=== PATIENT | female | born 1955 | race Caucasian/White ===

== ENCOUNTER → 2019-07-09 17:34 | Outpatient (CLI) | payer OTHER, SELFPAY ==
--- NOTE | 2019-07-09 17:36 | DI.MRI.S_ITS ---
PROCEDURE: MR HEAD/BRAIN WO CON INDICATIONS: HEADACHE TECHNIQUE: Non-contrast axial T1 spin echo, axial T2 fast spin echo, sagittal and axial FLAIR, coronal T2 fast spin echo, axial gradient echo, axial diffusion and ADC through the brain. COMPARISON: None. FINDINGS: Image quality: Excellent. CSF spaces: Ventricles appear symmetric in size and shape. Basal cisterns are patent. No extra-axial fluid collections. Brain: No intracranial bleeds or mass effects. Brainstem appears normal. Diffusion-weighted images show no acute ischemic insults. No areas of encephalomalacia. GRE weighted abnormalities identified in the brain parenchyma. Normal intravascular flow voids are present. Skull and face: Calvarial bone marrow is normal in signal. Orbits are normal. Sinuses: Sinuses and mastoids are clear. IMPRESSION: 1. No acute intracranial disease process. 2. No areas of acute or chronic infarction. 3. No abnormal intracranial mass or mass effect. 4. No acute or chronic intracranial hemorrhage. Dictated by: Danay Hall MD, PhD on 07/09/2019 at 17:11 Approved by: Danay Hall MD, PhD on 07/09/2019 at 17:14
== END ==
PROVIDERS: Visit Provider Naturopath
DX: R51 Headache (principal)
CPT/HCPCS: 70551

== ENCOUNTER → 2022-02-15 12:54 | Outpatient (CLI) | payer MEDICARE, OTHER, SELFPAY ==
--- NOTE | 2022-02-15 | DI.RAD.S_ITS ---
PROCEDURE: XR HIP W PEL IF DONE LT 2V INDICATIONS: Pain in left hip TECHNIQUE: AP pelvis with lateral view(s) of the left hip(s). COMPARISON: None. FINDINGS: Bones: No fractures or dislocations. Pelvic ring appears intact. No suspicious bony lesions. Mild left and mild right hip joint space narrowing. Moderate left and mild right joint periarticular fight is present. Sclerosis at the pubis symphysis is present. Soft tissues: The visualized bowel gas pattern is normal. No suspicious soft tissue calcifications. IMPRESSION: 1. Left greater than right hip osteoarthritis. 2. Osteitis pubis. Dictated by: Tony Ramirez M.D. on 02/15/2022 at 13:37 Approved by: Tony Ramirez M.D. on 02/15/2022 at 13:39
== END ==
PROVIDERS: PCP Internal Medicine; Referring Provider Internal Medicine; Visit Provider Internal Medicine
DX: M25.552 Pain in left hip (principal); M16.12 Unilateral primary osteoarthritis, left hip; M86.9 Osteomyelitis, unspecified
CPT/HCPCS: 73502

== ENCOUNTER → 2022-03-28 09:56 | Outpatient (CLI) | payer MEDICARE, OTHER, SELFPAY ==
[2022-03-28 10:54] LABS: Add Manual Diff / Slide Review NO; Basophils Absolute Auto 100 /uL (0-100); Basophils Percent Auto 0.9 % (0-2); Eosinophils Absolute Auto 100 /uL (0-450); Hematocrit 39.4 % (36-46); Hemoglobin 13.1 g/dL (12.0-16.0); Lymphocytes Absolute Auto 1000 /uL (1100-4500); Lymphocytes Percent Auto 18.6 % (25-40); Mean Corpuscular HGB Conc 33.2 % (30-36); Mean Corpuscular Hemoglobin 31.4 PG (26-34); Mean Corpuscular Volume 94.8 fL (80-100); Monocytes Absolute Auto 500 /uL (0-900); Monocytes Percent Auto 8.9 % (3-14); Neutrophils Absolute Auto 3900 /uL (1500-7000); Neutrophils Percent Auto 69.6 % (50-75); Platelet Count 283 X10^3/uL (150-400); Red Blood Cell Count 4.16 X10^6/uL (4.0-5.2); Red Cell Distribution Width 12.7 % (11.6-14.8); White Blood Cell Count 5.6 X10^3/uL (4.5-11.0)
[2022-03-28 12:14] LABS: Alanine Aminotransferase 15 IU/L (<35); Albumin 3.9 g/dL (3.5-5.0); Albumin Globulin Ratio 1.3 (1.0-2.8); Alkaline Phosphatase 100 U/L (38-126); Aspartate Aminotransferase 31 IU/L (14-36); BUN Creatinine Ratio 34.6 (6-22); Bilirubin Total 0.5 mg/dL (0.2-1.3); Blood Urea Nitrogen 27 mg/dL (7-17); C-Reactive Protein Quant < 0.5 mg/dL (<1.0); Carbon Dioxide 27 mmol/L (22-32); Chloride 107 mmol/L (98-107); Estimated Glomerular Filt Rate > 60 mL/min (>60); Globulin 2.9 g/dL (1.7-4.1); Glucose 78 mg/dL (80-110); HEMOLYSIS < 15 (0-50); Potassium 4.3 mmol/L (3.4-5.1); Sodium 140 mmol/L (137-145); Total Protein 6.8 g/dL (6.3-8.2)
== END ==
PROVIDERS: PCP Internal Medicine; Referring Provider Internal Medicine; Visit Provider Internal Medicine
DX: R10.84 Generalized abdominal pain (principal); Z86.010 Personal history of colon polyps
CPT/HCPCS: 36415; 80053; 85025; 86140

== ENCOUNTER → 2022-04-01 13:37 | Outpatient (CLI) | payer MEDICARE, OTHER, SELFPAY ==
--- NOTE | 2022-04-01 | DI.CT.S_ITS ---
PROCEDURE: CT ABDOMEN PELVIS W CON INDICATIONS: Lower abdominal pain, unspecified TECHNIQUE: After the administration of oral and intravenous contrast, axial sections were acquired from the lung bases to the pubic symphysis. Coronal and sagittal reformats were performed. For radiation dose reduction, the following was used: automated exposure control, adjustment of mA and/or kV according to patient size. COMPARISON:[facility], CR, L-SPINE 2-3 VIEWS, 11/06/2016, 10:07. [facility], CT, ABDOMEN/PELVIS WITH CONTRAST, 01/06/2014, 8:44. FINDINGS: Image quality: Excellent. Lung bases: Unremarkable. Heart: No significant findings. ABDOMEN: Liver: Multiple circumscribed low-density lesions are redemonstrated throughout the liver consistent with simple hepatic cysts. Gallbladder: Surgically absent Biliary ducts: Unremarkable. Pancreas: Unremarkable. Spleen: Unremarkable. Adrenal Glands: Unremarkable. Kidneys and Ureters: Unremarkable. Stomach and Bowel: Stomach, small bowel loops, and colon are unremarkable. There are scattered sigmoid diverticula. No evidence for diverticulitis. The appendix is thin walled and gas filled. Peritoneum: No abnormal intraperitoneal fluid. No free air. Ventral Wall: No hernia. Abdominal Nodes: No retroperitoneal or mesenteric adenopathy by size criteria. Vessels: Aorta and inferior vena cava are normal in size. PELVIS: Pelvic Organs: Unremarkable. Bladder: Unremarkable. Pelvic Nodes: No enlarged lymph nodes. Miscellaneous: No inguinal hernias are seen. Bones: Grade 2 anterolisthesis is redemonstrated at L4-5, unchanged from the study dated November 06, 2016. IMPRESSION: 1. No acute intra-abdominal findings. Normal appendix. Diverticulosis. No acute diverticulitis. Dictated by: Mabel Osorio M.D. on 04/01/2022 at 14:30 Approved by: Mabel Osorio M.D. on 04/01/2022 at 14:35
== END ==
PROVIDERS: PCP Internal Medicine; Referring Provider Nurse Practitioner Family; Visit Provider Nurse Practitioner Family
DX: K57.30 Diverticulosis of large intestine without perforation or abscess without bleeding (principal); R10.30 Lower abdominal pain, unspecified
CPT/HCPCS: 74177; Q9967

== ENCOUNTER → 2023-04-29 11:07 | Outpatient (CLI) | payer MEDICARE, OTHER, SELFPAY ==
[2023-04-29 13:15] LABS: Alanine Aminotransferase 20 IU/L (<35); Albumin Globulin Ratio 1.6 (1.0-2.8); Alkaline Phosphatase 104 U/L (38-126); Aspartate Aminotransferase 27 IU/L (14-36); BUN Creatinine Ratio 28.4 (6-22); Bilirubin Total 0.5 mg/dL (0.2-1.3); Blood Urea Nitrogen 19 mg/dL (7-17); Carbon Dioxide 30 mmol/L (22-32); Chloride 104 mmol/L (98-107); Cholesterol 177 mg/dL (140-199); Estimated Glomerular Filt Rate > 60 mL/min (>60); Globulin 2.5 g/dL (1.7-4.1); Glucose 78 mg/dL (80-110); HDL Cholesterol 69 mg/dL (40-60); HEMOLYSIS < 15 (0-50); LDL Cholesterol Calculated 94 mg/dL (<100); Potassium 4.1 mmol/L (3.4-5.1); Sodium 138 mmol/L (137-145); Total Protein 6.5 g/dL (6.3-8.2); Triglycerides 71 mg/dL (35-150)
[2023-04-29 13:41] LABS: TSH w/ Reflex to FT4 0.91 uIU/mL (0.47-4.68)
== END ==
PROVIDERS: PCP Internal Medicine; Referring Provider Internal Medicine; Visit Provider Internal Medicine
DX: E03.9 Hypothyroidism, unspecified (principal); Z13.9 Encounter for screening, unspecified
CPT/HCPCS: 36415; 80053; 80061; 84443

== ENCOUNTER → 2023-05-07 12:47 | Outpatient (CLI) | payer MEDICARE, OTHER, SELFPAY ==
--- NOTE | 2023-05-07 | DI.MG.S_ITS ---
BILATERAL DIGITAL SCREENING MAMMOGRAM 3D/2D WITH CAD: 05/07/2023 CLINICAL: Routine screening. Default Baseline. No prior exams were available for comparison. Both breasts are heterogeneously dense, which may obscure small masses (category c / 51-75% glandular tissue). Current study was also evaluated with a Computer Aided Detection (CAD) system. No significant masses, calcifications, or other findings are seen in either breast. IMPRESSION: NEGATIVE There is no mammographic evidence of malignancy. A 1 year screening mammogram is recommended. Based on the Tyrer Cuzick model (a risk assessment model) the patient's lifetime risk is 6.2% and her 10 year risk is 3.4%. According to the ACR, ACS, and NCCN guidelines, an annual breast MRI exam along with mammogram is recommended if the patient's lifetime risk is 20% or greater. This exam was interpreted at Station ID: [id number]. NOTE: For mammograms, a report in lay terms will be sent to the patient. Approximately 15% of breast malignancies will not be visualized mammographically. In the management of a palpable breast mass, a negative mammogram must not discourage biopsy of a clinically suspicious lesion. Electronically Signed By: Sofya bridges/concepción:05/07/2023 13:44:40 letter sent: Normal Exam ACR BI-RADS Category 1: Negative [id number]
--- NOTE | 2023-05-07 | DI.MRI.S_ITS ---
PROCEDURE: MR LUMBAR SPINE WO CON INDICATIONS: Radiculopathy/osteoporosis screening/baseline TECHNIQUE: Noncontrast sagittal T1 spin echo and T2 fast echo, sagittal STIR, and T2 fast spin echo through the lumbar spine. In cases with scoliosis, additional coronal T2 fast spin echo may be performed. COMPARISON: [facility], CT, CT ABDOMEN PELVIS W CON, 04/01/2022, 13:57. FINDINGS: Image quality: This examination is limited by involuntary motion artifact. Alignment and Curvature: Minimal retrolisthesis is seen at the T11-T12 and T12-L1 levels. There is grade 2 anterolisthesis seen at the L4-L5 level. No associated pars defects are seen. Minimal anterolisthesis can be seen at L5-S1. Mild dextroconvex scoliotic curvature is seen. Bone Marrow: Marrow is of normal overall signal. No acute vertebral body compression fractures. Spinal Cord: Conus medullaris terminates at theL1 level. Visualized cord demonstrates normal signal and size. Paraspinous Soft Tissues: No paravertebral masses. T11-T12: Moderate loss of disc height is seen. Loss of disc signal is seen. No significant neural foraminal or central canal narrowing can be seen. T12-L1: The disc height is well-preserved. Loss of disc signal is seen at this level. Mild generalized disc bulge is seen. Mild facet joint hypertrophy is seen. There is moderate left-sided and no right-sided neural foraminal narrowing. No central canal narrowing is seen. L1-L2: The disc height is well-preserved. Loss of disc signal is seen at this level. Mild generalized disc bulge is seen. Mild facet joint hypertrophy is seen. There is moderate left-sided and no right-sided neural foraminal narrowing. No central canal narrowing is seen. L2-L3: The disc height and disk signal are well-preserved. Mild generalized disc bulge is seen. Mild facet joint hypertrophy is seen. No significant neural foraminal or central canal narrowing can be seen. L3-L4: The disc height is well-preserved. Loss of disc signal is seen at this level. Mild generalized disc bulge is seen. Mild facet joint hypertrophy is seen. There is at least moderate bilateral neural foraminal narrowing seen. Mild central canal narrowing is seen. L4-L5: Moderate to severe loss of disc height and disc signal can be seen. There is moderate to severe bilateral neural foraminal narrowing seen, with an associated a degree of compression seen upon the exiting nerve roots. Moderate to severe central canal narrowing is seen at this level. L5-S1: Moderate loss of disc height is seen. Loss of disc signal is seen. Moderate disc bulge is seen, which is eccentric to the right. There is moderate right-sided and mild left-sided neural foraminal narrowing. There is moderate to severe bilateral neural foraminal narrowing seen, with an associated a degree of compression seen upon the exiting nerve roots. Mild central canal narrowing is seen. IMPRESSION: Multiple levels of lumbar spine degenerative change are seen, which are worst at the L4-L5 level, where there is grade 2 anterolisthesis, yet without associated pars defects. Mild dextroconvex scoliotic curvature is seen. Dictated by: Brennan Boggs M.D. on 05/07/2023 at 16:17 Approved by: Brennan Boggs M.D. on 05/07/2023 at 16:24
--- NOTE | 2023-05-07 | DI.RAD.S_ITS ---
PROCEDURE: XR DEXA AXIAL SKELETON INDICATIONS: Radiculopathy/osteoporosis screening/baseline COMPARISON: None. FINDINGS: This blank DEXA report has been sent in error by the PACS system. The correct and complete report will be forthcoming in 1-2 days. Thank you for your patience and understanding. Dictated by: Adrien Hakwins M.D. on 05/07/2023 at 15:38 Approved by: Adrien Hawkins M.D. on 05/07/2023 at 15:38
--- NOTE | 2023-05-07 13:13 | DI.DEXA.S_ITS ---
Bone Density Report Name: LOUISA ARAGON Age: 67 Sex: Female Ethnicity: White Date of : 1955 Indication: postmenopausal; screening for osteoporosis; prior fracture; Referring Provider: COLEEN MELO Study: Bone densitometry was performed. Exam Date: May 07, 2023 Accession number: [id number] Bone Density: Region BMD T-score Z-score Classification AP Spine(L1-L4) 0.771 -2.5 -0.5 Osteoporosis Femoral Neck (Left) 0.618 -2.1 -0.4 Osteopenia Total Hip (Left) 0.607 -2.7 -1.3 Osteoporosis Femoral Neck (Right) 0.471 -3.4 -1.7 Osteoporosis Total Hip (Right) 0.547 -3.2 -1.8 Osteoporosis Total Hip Mean 0.577 -3.0 -1.6 Osteoporosis World Health Organization criteria for BMD impression classify patients as: Normal (T-score at or above -1.0), Osteopenia (T-score between -1.0 and -2.5), or Osteoporosis (T-score at or below -2.5). 10-year Fracture Risk: FRAX not reported because: Some T-score for Spine Total or Hip Total or Femoral Neck at or below -2.5 Prior hip or vertebral fracture Impression: The patient has established osteoporosis, based on the Right Femoral Neck T-score and the existence of a prior fracture. The patient has risk factors, including: previous fracture. Discussion: HIGH RISK OF FRACTURE. BONE DENSITY IS UNDESIRABLY LOW AT ONE OR MORE SKELETAL SITES, CONSISTENT WITH POSTMENOPAUSAL OSTEOPOROSIS. This patient's lowest T-score, in a patient who has previously fractured, meets the World Health Organization's (WHO) criteria for severe osteoporosis. In untreated patients, the risk of osteoporotic fracture increases approximately two-fold for each 1.0 SD decrease in T-score. Low bone density is not the only risk factor for fracture; also consider factors such as patient's age, frailty or poor health, risk of falling, risk of injury, previous osteoporotic fracture, family history of osteoporosis, cigarette smoking, low body weight, etc. Not everyone with low bone mineral density has osteoporosis; osteomalacia and other metabolic bone disorders should also be considered. Patients who have osteoporosis should be evaluated for specific diseases and conditions (secondary causes) that may cause or contribute to bone loss. The [place] [employer]ocrinologists (AACE) and National Osteoporosis Foundation (NOF) recommend pharmacologic intervention for all postmenopausal women with a previous hip or vertebral fracture and a T-score in this range. The patient should follow a healthful lifestyle (good nutrition with adequate calcium and vitamin D, and appropriate weight-bearing exercise). Follow-Up: Consider a repeat BMD and Vertebral Fracture Assessment (VFA) exam in 2 years or sooner if medically necessary, to reassess this patient's status. Reported by: RUPESH WINCHESTER M.D. on 05/07/2023 1:30:00 PM.
== END ==
PROVIDERS: PCP Internal Medicine; Referring Provider Internal Medicine; Visit Provider Internal Medicine
DX: M47.26 Other spondylosis with radiculopathy, lumbar region; Z12.31 Encounter for screening mammogram for malignant neoplasm of breast; M43.16 Spondylolisthesis, lumbar region; M41.9 Scoliosis, unspecified; Z13.820 Encounter for screening for osteoporosis; M81.0 Age-related osteoporosis without current pathological fracture; Z78.0 Asymptomatic menopausal state; Z90.710 Acquired absence of both cervix and uterus; Z87.311 Personal history of (healed) other pathological fracture
CPT/HCPCS: 72148; 77063; 77067; 77080

== ENCOUNTER → 2024-01-22 15:35 | Outpatient (CLI) | payer MEDICARE, OTHER, SELFPAY ==
--- NOTE | 2024-01-22 | DI.MRI.S_ITS ---
PROCEDURE: MR PELVIS WO CON INDICATIONS: LOWER BACK PAIN , BILATERAL HIP PAIN,PELVIC PAIN TECHNIQUE: Noncontrast coronal and sagittal T1 spin echo and STIR, and axial T1 spin echo and T2 fast spin echo with fat saturation through the bony pelvis. COMPARISON: [facility], CR, XR HIP W PEL IF DONE LT 2V, 01/22/2024, 15:44. FINDINGS: Image quality: Excellent. Bones: Severe degenerative changes are seen at the left hip with diffuse full thickness cartilage loss with prominent subchondral cystic changes and surrounding subchondral edema. There is remodeling of the articular surfaces and marginal osteophyte formation. Moderate to large hip effusion is seen with a suspected 1.7 cm ossified loose body anterior to the femoral neck and additional smaller loose bodies. Lobular cyst is seen anterior to the hip measuring 2.0 x 1.4 x 3.3 cm that could represent a ganglion cyst, paralabral cyst, or loculated joint fluid. The pelvic bones and right proximal femur demonstrate no acute trabecular bone injury. Mild degenerative changes are seen in the right hip. Degenerative changes also noted at the pubic symphysis. Multilevel degenerative disc disease and facet hypertrophy are seen in the included lumbar spine with possible spinal canal narrowing, better evaluated on the lumbar spine MRI performed on the same day. Tendons and ligaments: The gluteus medius and minimus tendons appear intact, without associated muscle atrophy. The proximal iliotibial band appears intact. The iliopsoas tendon appears intact, without adjacent bursal fluid collections. The origin of the hamstring tendon is intact at the ischial tuberosity. The tendons for the direct and indirect heads of the rectus femoris muscle appear intact. Soft tissues: Visualized muscles demonstrate normal bulk and internal signal. Quadratus femoris muscle demonstrates no internal edema to suggest ischiofemoral impingement. The proximal sciatic neurovascular bundle appears normal adjacent to the hamstring tendons. Status posthysterectomy. Pelvic soft tissues demonstrate no acute abnormality. IMPRESSION: 1. Severe asymmetric left hip osteoarthrosis with prominent subchondral cystic changes and subchondral edema. Moderate to large left hip effusion is seen with multiple ossified intra-articular loose bodies. 2. Lobulated fluid collection anterior to the left hip measuring up to 3.3 cm in greatest dimension may represent a large paralabral cyst versus ganglion cyst or loculated joint fluid. 3. Mild right hip osteoarthrosis. Degenerative changes also seen in the pubic symphysis and included lumbar spine. Approved by: Kojo Villanueva M.D. on 01/23/2024 at 9:53
--- NOTE | 2024-01-22 | DI.MRI.S_ITS ---
PROCEDURE: MR LUMBAR SPINE WO CON INDICATIONS: LOWER BACK PAIN , BILATERAL HIP PAIN,PELVIC PAIN TECHNIQUE: Noncontrast sagittal T1 spin echo and T2 fast echo, sagittal STIR, and T2 fast spin echo through the lumbar spine. In cases with scoliosis, additional coronal T2 fast spin echo may be performed. COMPARISON: [facility], MR, MR LUMBAR SPINE WO CON, 05/07/2023, 14:03. FINDINGS: Image quality: Excellent. Alignment and Curvature: Dextrocurvature of the lumbar spine. Grade 2 anterolisthesis of L4 on L5. Minimal retrolisthesis of T11 on T12 and T12 and L1. Bone Marrow: Marrow is of normal overall signal. No acute vertebral body compression fractures. Spinal Cord: Conus medullaris terminates at the L1 level. Visualized cord demonstrates normal signal and size. Paraspinous Soft Tissues: No paravertebral masses. T12-L1: Disc desiccation height loss. Minimal disc bulge. No central canal stenosis. Moderate left and no right neural foraminal stenosis. L1-L2: Disc desiccation height loss. Mild disc bulge. Facet arthropathy. No central canal stenosis. Stable moderate left and no right neural foraminal stenosis. L2-L3: Disc desiccation. Facet arthropathy and thickening of ligamentum flavum. No central canal stenosis. No significant neural foraminal stenosis. L3-L4: Disc desiccation and height loss. Mild disc bulge. Facet arthropathy and thickening of ligamentum flavum. Stable mild central canal stenosis. Stable moderate bilateral neural foraminal stenosis. L4-L5: Anterolisthesis. Facet arthropathy and thickening of ligamentum flavum. Moderate to severe central canal stenosis and bilateral neural foraminal stenosis is stable. L5-S1: Disc desiccation height loss. Mild disc bulge. Facet arthropathy. No central canal stenosis. Moderate to severe bilateral neural foraminal stenosis. IMPRESSION: 1. Redemonstration of multilevel degenerative changes of the lumbar spine with grade 2 anterolisthesis of L4 on L5. Findings overall similar appearance compared to prior. 2. Stable moderate to severe central canal stenosis at L4-5. 3. Stable moderate to severe bilateral neural foraminal stenosis at L4-5 and L5-S1. Dictated by: Luis Enrique Escobar M.D. on 01/22/2024 at 16:35 Approved by: Luis Enrique Escobar M.D. on 01/22/2024 at 16:41
--- NOTE | 2024-01-22 16:41 | DI.RAD.S_ITS ---
PROCEDURE: XR HIP W PEL IF DONE LT 2V INDICATIONS: LT HIP PAIN TECHNIQUE: AP pelvis with lateral view(s) of the left hip(s). COMPARISON: [facility], [place], L-SPINE 2-3 VIEWS, 11/06/2016, 10:07. [facility], [place], XR HIP W PEL IF DONE LT 2V, 02/15/2022, 12:54. FINDINGS: Bones: No fractures or dislocations. Pelvic ring appears intact. No suspicious bony lesions. Moderate to severe left hip joint degeneration, increased since the last exam. Scoliosis and spondylitic changes in the lumbar spine. Soft tissues: The visualized bowel gas pattern is normal. No suspicious soft tissue calcifications. IMPRESSION: 1. Moderate to severe osteoarthritis, increased since the last exam. Dictated by: Adrien Hawkins M.D. on 01/23/2024 at 9:21 Approved by: Adrien Hawkins M.D. on 01/23/2024 at 9:25
== END ==
PROVIDERS: PCP Internal Medicine; Referring Provider Neurological Surgery; Visit Provider Neurological Surgery
DX: M16.0 Bilateral primary osteoarthritis of hip (principal); M24.052 Loose body in left hip; M25.452 Effusion, left hip; M43.16 Spondylolisthesis, lumbar region; M47.816 Spondylosis without myelopathy or radiculopathy, lumbar region; M47.817 Spondylosis without myelopathy or radiculopathy, lumbosacral region; M48.061 Spinal stenosis, lumbar region without neurogenic claudication; M48.07 Spinal stenosis, lumbosacral region; M41.9 Scoliosis, unspecified; M54.50 Low back pain, unspecified; R10.2 Pelvic and perineal pain
CPT/HCPCS: 72148; 72195; 73502

== ENCOUNTER 2025-02-15 13:28 | Emergency (ER) | payer MEDICARE, OTHER, SELFPAY ==
[2025-02-15] VITALS (7 sets, daily range): BP systolic 136–161; BP diastolic 65–92; PULSE 57–78; RESP 18; TEMP 36.6; O2SAT 96–100; BMI 21.4
--- NOTE | 2025-02-15 14:01 | ED_ITS ---
HPI - Skin/Abscess/Foreign Bdy General Chief complaint: Skin/Abscess/Foreign Body Stated complaint: fish bone stuck in throat, while talking pain Time Seen by Provider: 02/15/25 13:59 Source: patient Mode of arrival: Ambulatory Limitations: no limitations History of Present Illness HPI narrative: Otherwise healthy 69-year-old woman who is having [place] and dinner last night got a salmon fish bone stuck the right side of her throat. She is still able to drink thin liquids like water but not able to eat. They have tried small bits of red and other remedies. She has having difficulty talking because movement c auses of the bone or at least see edema around the bone to irritate the back of her throat which makes her want to vomit. She did vomit once that did not dislodge the bone. She is otherwise hemodynamically stable and airway is not compromised. Comes in for further evaluation Related Data Home Medications Medication Instructions Recorded Confirmed No Known Home Medications 01/13/23 01/13/23 Allergies Allergy/AdvReac Type Severity Reaction Status Date / Time Penicillins Allergy Mild unknown Verified 01/13/23 13:17 cephalexin [From Keflex] Allergy Verified 02/15/25 13:46 Review of Systems Review of Systems Narrative: Pertinent positive and negative findings as per HPI Patient History Medical History Scoliosis Diverticular disease Menopausal syndrome History of colonic polyps Chronic low back pain Surgical History Anesthesia History of oophorectomy History of hysterectomy History of hernia repair (~1959) Family History Mother History of heart disease Social History details: (Alexey), daughter of Estrella Zavala Smoking Status: Never smoker Exam Initial Vital Signs Initial Vital Signs: Vital Signs Temperature 97.9 F 02/15/25 13:46 Pulse Rate 61 02/15/25 13:46 Respiratory Rate 18 02/15/25 13:46 Blood Pressure 145/65 H 02/15/25 13:46 Pulse Oximetry 99 02/15/25 13:46 Oxygen Delivery Method Room Air 02/15/25 13:46 General: Alert appropriate in no acute distress HEENT: External exam of the neck and jaws unremarkable. Posterior pharynx as far as I am able to see is unremarkable. I am not able to see deeper into the throat or vallecula Respiratory: Able to speak in full sentences, no obvious respiratory distress Skin: No obvious rashes, warm and dry Neurologic: Grossly intact no obvious asymmetries or abnormalities Psych: appropriate insight and affect, cooperative Course Orders Ordered: ED Orders 02/15/25 14:10 XR soft tissue neck Stat Discontinued Medications Benzocaine/Butamben/Tetracaine HCl (Tetracaine/Benzocaine/Butamben (Cetacaine) Bottle) 1 spray TOP NOW ONE Stop: 02/15/25 17:12 Last Admin: 02/15/25 17:13 Dose: 1 spray Documented By: JAIME Sodium Chloride (Normal Saline 0.9%) 1,000 mls @ 1,000 mls/hr IV BOLUS ONE Stop: 02/15/25 17:49 Last Admin: 02/15/25 17:00 Dose: 1,000 mls/hr Documented By: JAKE Vital Signs Vital signs: Vital Signs - 8 hr 02/15/25 13:46 Temperature 97.9 F Pulse Rate 61 Respiratory Rate 18 Blood Pressure 145/65 H Pulse Oximetry 99 Oxygen Delivery Method Room Air MDM - Skin/Abscess/Foreign Bdy MDM Narrative Medical decision making narrative: 69-year-old woman with a fishbone caught likely in the right vallecula since dinnertime last night. Airway is not compromised but she is not able to eat solid food and when she tries to speak feels like it is going to make her vomit. Call to ENT to see how they would like to proceed with removal of the fishbone. Dr. Troncoso, ENT physician sees and evaluates the patient in the emergency department. With Cetacaine and flexible scope brought in by Dr. Troncoso, he is able to remove a small fishbone from the right side vallecula folds. Patient was able to tolerate this in the emergency department, when she is able to swallow after the Cetacaine has worn off she will be discharged home. There is no specific follow up instructions nor precautions that need to be taken at this point. Discharge Plan Departure Patient Disposition: Home Clinical Impression: Foreign body in throat Qualifiers: Encounter type: initial encounter Qualified Code(s): T17.208A - Unspecified foreign body in pharynx causing other injury, initial encounter Activity Restrictions/Additional Instructions: thank you for coming in today Dr. Troncoso was able to remove the fishbone for you in the emergency department. You are safe to be discharged home, he is said you do not need any additional precautions or concerns nor specific follow up If you find that you are getting worse or develop any new symptoms, please feel free to return to the emergency department for further evaluation. Prescriptions: No Action No Known Home Medications Referrals: Yahir Oropeza MD [Primary Care Provider] - Stand Alone Forms: Patient Portal/API/Survey
--- NOTE | 2025-02-15 14:10 | DI.RAD.S_ITS ---
PROCEDURE: XR SOFT TISSUE NECK INDICATIONS: fishbone stuck TECHNIQUE: 2 views of the neck were acquired. COMPARISON: None. FINDINGS: Airway: The airway appears patent. Soft tissues: Prevertebral soft tissues are normal in thickness. The epiglottis and aryepiglottic folds appear normal. No soft tissue gas. No radiopaque soft tissue foreign body identified. Bones: No suspicious bony lesions. Visualized cervical spine is normally aligned. Multilevel cervical spondylosis. IMPRESSION: Negative soft tissue neck. No evidence for radiopaque soft tissue foreign body. Dictated by: Errol Pickett M.D. on 02/15/2025 at 15:18 Approved by: Errol Pickett M.D. on 02/15/2025 at 15:19
[2025-02-15] MEDS: SODIUM CHLORIDE 0.9% 1,000 ML 1000 ML IV (17:00)
[2025-02-15] MEDS: TETRACAINE/BENZOCAINE/BUTAMBEN (CETACAINE) BOTTLE 1 SPRAY TOP (17:13)
--- NOTE | 2025-02-15 18:09 | PM.OP.1 ---
Operative Date/Time/Diagnoses Date of procedure: 02/15/25 Time of procedure: 17:30 Pre-op diagnosis: Laryngeal foreign body, specifically right piriformis sinus Post-op diagnosis: same Procedure & Clinicians Procedure: Flexible and indirect laryngoscopy with foreign body removal, CPT 02320 Same procedure as scheduled: Yes Indications: 69 Year old with the above diagnoses presents for the above procedure. Following discussion of the material risks benefits complications and alternatives, the patient elected to proceed. Surgeon: Tariq Troncoso Anesthesia Type: Local Operative Notes Findings: 3 cm tapered his bone sitting vertically in the right pyriform sinus extending lateral to the epiglottis. It partially caught on removal, scant bleeding. No residual foreign body seen. Estimated Blood Loss (mL): 1 Procedure in detail: Following discussion of the material risks benefits complications and alternatives, the flexible laryngoscope was passed through the right nostril, to reveal a normal nasopharynx and base of tongue and epiglottis. The fishbone foreign body was seen oriented vertically in the right pyriform sinus without evidence of trauma, laryngeal exam otherwise normal. Utilizing indirect laryngoscopy with the tongue retracted, and after spraying with topical Cetacaine x2, I was able on the 3rd attempt to grasp the fishbone with a long curved hemostat although it did catch on removal but eventually was completely removed. Follow-up endoscopy showed trace blood in the right pyriform but no active bleeding. Tolerated well without known complication. Complications: none Post-operative Condition: stable Disposition: other (Home from the emergency room) Plan for aftercare: Resume liquid oral intake once the anesthetic has worn off to prevent aspiration. Okay to gargle with salt water. Call with any worsening pain fever, inability to swallow, airway obstruction, all felt to be very unlikely at this point.
--- NOTE | 2025-02-15 18:17 | PM.CN ---
History of Present Illness Consult details Time Patient Seen: 17:00 Chief complaint: fish bone stuck in throat, while talking pain Reason for consult: As above Requesting provider: Ninfa Rios Narrative: 69-year-old female otherwise healthy without similar prior problems with eating family dinner last night proximally 24 hours ago with immediate pain. She removed a few bone from her mouth but felt consistent pain in the right mid to lower neck. Despite swallowing various consistencies the problem has persisted and her last oral intake was now noon today. She suffered emesis at 1 point but still no relief. No airway concerns but painful to talk and swallow. I was asked by the ER provider to evaluate and treat. No other ENT complaints although partial cerumen impaction on 1 side. Meds Home Medications and Allergies Home Medications Medication Instructions Recorded Confirmed Type No Known Home Medications 01/13/23 01/13/23 History Allergies Allergy/AdvReac Type Severity Reaction Status Date / Time Penicillins Allergy Mild unknown Verified 01/13/23 13:17 cephalexin [From Keflex] Allergy Verified 02/15/25 13:46 Review of Systems Review of Systems Narrative: Negative except as listed in the HPI Exam Vital Signs (past 8 hours): - 02/15/25 13:46 Temperature 97.9 F Pulse Rate 61 Respiratory Rate 18 Blood Pressure 145/65 H Pulse Oximetry 99 Oxygen Delivery Method Room Air Oxygen Delivery Method Room Air Narrative Exam Narrative: Well-developed well-nourished female in no acute distress. Reluctant to talk due to pain but no stridor, tolerating secretions. Cerumen impaction on the right, left normal exam. Nasal cavity is clear oral cavity is clear. Indirect nasopharyngoscopy shows possible foreign body right piriform sinus. Neck is soft and nontender no masses [facility] Medical History Scoliosis Diverticular disease Menopausal syndrome History of colonic polyps Chronic low back pain Surgical History Anesthesia History of oophorectomy History of hysterectomy History of hernia repair (~1959) Family History Mother History of heart disease Social History details: (Rudie), daughter of Estrella Zavala Tobacco & Substance Use Smoking Status: Never smoker Assessment & Plan Assessment & Plan narrative: Assessment: Right piriformis/laryngeal foreign body, fishbone, removed. Odynophagia/dysphagia due to the foreign body. Plan: Following discussion of the material risks benefits complications and alternatives, she elected to proceed with flexible laryngoscopy and indirect laryngoscopy with foreign body removal, fortunately successful. She will avoid taking liquid p.o. until the sensation has returned to her throat, then begin with liquids. Okay to gargle with saltwater if it helps her feel better. She should improve on a daily basis but call with any worsening or other concerning symptoms. Time-Based Coding :: [TOTAL MINUTES] spent with patient and on the chart (including review of chart, obtaining history, exam, reviewing outside data, placing orders, documenting exam and treatment plan, and counseling patient) on [DATE].
== END 2025-02-15 18:30 | disposition home or self-care (01) ==
PROVIDERS: Emergency Provider Emergency Medicine; PCP Internal Medicine
DX: T17.208A Unspecified foreign body in pharynx causing other injury, initial encounter (principal)
CPT/HCPCS: 36415; 70360; 96360; 99284

== ENCOUNTER → 2025-06-08 13:49 | Outpatient (CLI) | payer MEDICARE, OTHER, SELFPAY ==
--- NOTE | 2025-06-08 13:51 | DI.US.S_ITS ---
US bx breast perc w vac device: 06/08/2025. Rad-Path Correlation: Pending CLINICAL: 69-year old female for left procedure that resulted from diagnostic mammogram on 05/17/2025. Tyrer-Cuzick lifetime risk of 2.5%. No personal or first-degree family history of breast cancer. The patient reports a palpable abnormality (1 month) and pain (3 months) in the left breast. PRIOR EXAMS: Mammogram(s): 05/17/2025, 05/07/2023. Breast Ultrasound(s): 05/17/2025. CONSENT Risks including but not limited to bleeding and infection, benefits and alternatives were discussed with the patient. The patient agreed to the procedure and signed informed consent. Time out procedure was used. ROUTINE Left: Patient positioned in the supine or supine-oblique position, prepped and draped in the usual manner using sterile technique. TECHNIQUE Left: Outer at 3:00, 12 cm from nipple: Procedure: Ultrasound-guided vacuum-assisted biopsy of a mass with Tumark(R) Vision marker placement. Device: 14-gauge vacuum-assisted biopsy instrument. Bard(R) Monopty(R) 14g. Anesthesia: Local anesthesia obtained using 1%-lidocaine. Secondary local anesthesia obtained using 2%-lidocaine with epinephrine. Skin Entry: Incision with #11 blade. Targeting Confirmation: Real-time Observation and Post-Procedure Imaging. Marker Placement: Tumark(R) Vision marker placed in target location. Post-procedure imaging: Post-procedure imaging confirms the marker to be in target location. Rad/Path Correlation: Pending receipt of pathology report. Conclusion: Ultrasound-guided Vacuum-assisted biopsy with post-procedure CC and ML mammographic views with marker placement, Left: Outer at 3:00, 12 cm from nipple COMPLICATIONS: No complications were encountered while the patient was in our department. DISPOSITION The patient left our department in good condition with aftercare instructions and urged to contact us should any problem arise. The breast was compressed to achieve hemostasis. SUMMARY Left: Outer at 3:00, 12 cm from nipple: Ultrasound-guided vacuum-assisted biopsy of a mass with Tumark(R) Vision marker placement. PATHOLOGY Left: Outer at 3:00, 12 cm from nipple: Radiologist-Pathologist Correlation: Pending receipt of pathology report. ELECTRONICALLY SIGNED: Tom Cooley MD on 06/14/2025 at 10:19:28 AM PT Interpreting Station ID: [id number]
--- NOTE | 2025-06-08 13:52 | DI.MG.S_ITS ---
MM clip placement LT: 06/08/2025. BI-RADS: None CLINICAL: 69-year old female for left diagnostic mammogram. Tyrer-Cuzick lifetime risk of 2.5%. No personal or first-degree family history of breast cancer. The patient reports a palpable abnormality (1 month) and pain (3 months) in the left breast. PRIOR EXAMS Mammogram(s): 05/17/2025. Breast Ultrasound(s): 05/17/2025. One Other Exam on 05/07/2023. MAMMOGRAPHY TECHNIQUE: 2D and/or 3D (tomosynthesis) digital mammographic views obtained, with additional images as needed for full coverage. DENSITY Left: C. The breast is heterogeneously dense, which may obscure small masses. MAMMOGRAPHY FINDINGS Left: Outer at 3:00, 12 cm from nipple, previously measuring (05/17/2025) 0.8 x 0.6 x 0.7cm: There is a (Tumark(R) Vision) biopsy marker in targeted location. IMPRESSION: Left * Biopsy marker present. OVERALL ASSESSMENT CATEGORY BI-RADS None: This exam requires no BI-RADS. ELECTRONICALLY SIGNED: Tom Cooley MD on 06/16/2025 at 08:33:11 AM PT Interpreting Station ID: [id number]
--- NOTE | 2025-06-08 15:53 | PATH_ITS ---
[facility] Accession Number: [id number] No. of containers..01 Tissue . 01 Material submitted: . breast - LT BREAST . 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 Histologic grade ([place] histologic score): Grade 1 of 3 (score 5 of 9). -Tubular formation: Poor (score 3 of 3). -Nuclear grade: Low (score 1 of 3). -Mitotic rate: Low (score 1 of 3). Largest invasive focus: 4 mm. Ductal carcinoma in situ (DCIS): Present. -Architectural pattern: Solid, cribriform. -Nuclear grade: Low. -Necrosis: Not identified. Lymphovascular invasion: Not identified. Associated calcifications: Not identified. Biomarkers: -ER: Positive (95%, strong). -WV: Positive (95%, strong). -HER2 by IHC: Negative (score 0). -Ki-67: 5% (estimated). [facility] 06/15/2025 1154 Local . 01 Comment: Immunohistochemistry for CK5/6, p63, and myosin are performed and are positive in the areas of in-situ carcinoma and negative in the areas of invasion. ER, WV, HER2, and Ki-67 are also performed and reported in the above synoptic summary. . The results were reported to KARYNA Brown, at Dr. Oropeza's office at 4:55 pm on 06/14/2025. . As part of routine quality control inspector, this case has been reviewed by Dr. Blue Navarro, who agrees with the diagnosis. . Technical Note: The immunohistochemical stains reported were performed with appropriately staining controls at [facility] ([address] [place], [place] [address] [address], [facility] [address]). This test was developed and performance characteristics validated by [facility]. It has not been cleared or approved by the Food and Drug Administration. . 01 Electronically signed: . Jesi Aguero DO, Pathologist NPI- [id number] . 01 Gross description: . Received in formalin with two identifiers and LT breast are multiple fragments of yellow-pace soft tissue admixed with hemorrhagic material aggregating to 2.5 x 1.7 x 0.3 cm. Filtered and submitted entirely in A1. . . The specimen was removed on 06/08/2025, time not provided. Cold ischemic time cannot be calculated. Total fixation time is approximately 30 hours. ([id number]) /MRV 06/09/2025 2109 Local . 01 Pathologist provided ICD-10: C50.912 . 01 CPT . 527049, L21277, J37541, 969010, [id number] Specimen Comment: A courtesy copy of this report has been sent to [facility] Pathology, Specimen Comment: [phone] Performed at: [address], [place], [place] [id number] MD Bryan Steen MD Phone: [phone]
== END ==
PROVIDERS: PCP Internal Medicine; Referring Provider Internal Medicine; Visit Provider Internal Medicine
DX: C50.812 Malignant neoplasm of overlapping sites of left female breast (principal); Z17.0 Estrogen receptor positive status [ER+]; Z17.21 Progesterone receptor positive status; R92.332 Mammographic heterogeneous density, left breast
CPT/HCPCS: 19083; 77065